=== PATIENT | female | born 1960 | race Caucasian/White ===

== ENCOUNTER 2018-06-13 08:00 | Outpatient (CLI) | payer BC ==
[2012-11-02 00:20] VITALS: BMI 31.8
== END 2018-06-13 09:00 | disposition home or self-care (01) ==
LOC: D.MAMMO 08:00
DX: Z12.31 Encounter for screening mammogram for malignant neoplasm of breast (principal)

== ENCOUNTER 2019-06-27 10:00 | Outpatient (CLI) | payer BC ==
[2012-11-02 00:20] VITALS: BMI 31.8
== END 2019-06-27 10:30 | disposition home or self-care (01) ==
LOC: D.MAMMO 10:00
PROVIDERS: ATTEND Family Medicine
DX: Z12.31 Encounter for screening mammogram for malignant neoplasm of breast (principal)